=== PATIENT | female | born 1980 | race Caucasian/White ===

== ENCOUNTER 2016-12-31 19:12 | Emergency (ER) | payer BC ==
[2016-12-31 20:10] LABS: Clarity Clear (Clear); Leukocyte Negative (Negative); Nitrite Negative (Negative)
[2016-12-31 20:11] LABS: Bacteria/HPF Rare-Few HPF (None Seen); Bilirubin Negative (Negative); Blood, Urine Negative (Negative); Glucose, Urine (Dipstick) Negative (Negative); Protein, Urine (Dipstick) Negative (Neg-Trace); RBC/HPF 0-3 HPF (0-3); Urobilinogen 0.2 mg/dL (0.2-1.0); WBC/HPF 0-3 HPF (0-3)
[2016-12-31] MEDS ORDERED: Ketorolac Tromethamine 30 MG/ML VIAL ONE (20:21)
[2016-12-31] MEDS ORDERED: Metoclopramide HCl 10 MG/2 ML VIAL ONE (20:21)
[2016-12-31] MEDS ORDERED: Ondansetron HCl/PF 4 MG/2 ML Vial ONE (20:21)
[2016-12-31 20:54] LABS: #Basophils 0.1 thou/uL (0.0-0.2); #Eosinphils 0.1 thou/uL (0.0-0.7); #Lymphocytes 1.6 thou/uL (1.20-3.40); #Monocytes 0.4 thou/uL (0.11-0.59); #Neutrophils 7.2 thou/uL (1.40-6.50); %Basophils 0.6 % (0.0-1.0); %Lymphocytes 16.7 % (21.0-51.0); %Monocytes 4.4 % (0.0-10.0); %Neutrophils 77.3 % (42.0-75.0); Hemoglobin 13.6 g/dL (12.0-16.0); Mean Corpuscular HGB CONC 33.9 g/dL (32.0-36.0); Mean Corpuscular Hemoglobin 28.6 pg (27.0-31.0); Mean Corpuscular Volume 84.5 fl (81.0-99.0); Mean Platelet Volume 6.5 fL (7.4-10.4); Platelet Count 240 thou/uL (130-400); RBC Distribution Width 12.1 % (11.5-14.5); Red Blood Cell (RBC) Count 4.76 mill/uL (4.20-5.40); White Blood Cell (WBC) Count 9.4 thou/uL (4.8-10.8)
--- NOTE | 2016-12-31 20:59 | RAD ---
PORTABLE CHEST: 12/31/16 HISTORY: Left sided pain. Heart size and mediastinum are within normal limits. The lungs are clear of infiltrates. No signific ant bony findings. IMPRESSION: No active intrathoracic disease. POS: [facility]
--- NOTE | 2016-12-31 21:07 | CT ---
CT OF ABDOMEN AND PELVIS PERFORMED WITHOUT CONTRAST ENHANCEMENT: 12/31/16 HISTORY: Right flank pain and left upper quadrant pain. The lung bases are clear. The liver, spleen, and pancreas regions appear unremarkable. The gallbladder has been removed. Right and left adrenal glands and right and left kidneys are normal in size. Slight increased attenu ation to the medullary pyramids are present. There are punctate renal calculi seen. There is no evid ence or obstruction. No ureteral calculus noted. There is no significant periaortic or mesenteric ly mphadenopathy. A gastric band is in place. CT OF PELVIS PERFORMED WITHOUT CONTRAST ENHANCEMENT: There is no evidence of adenopathy, mass or free fluid. The uterus has been removed. IMPRESSION: 1. Punctate nonobstructing renal calculi with some haziness in the region of the medullary pyra mids. 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 2. Borderline liver size. The right lobe is somewhat elongated. 3. Postop cholecystectomy change. 4. Normal appendix. POS: [facility]
[2016-12-31 21:13] LABS: Hemoglobin A1c 5.3 % (4.0-6.0)
[2016-12-31 21:14] LABS: ALT (SGPT) 13 U/L (8-55); AST (SGOT) 12 U/L (5-34); Albumin 4.3 g/dL (3.5-5.0); Alkaline Phosphatase 51 U/L (40-150); Anion Gap 17 mmol/L (10-20); BUN (Urea Nitrogen) 9 mg/dL (7.0-18.7); Bilirubin, Total 0.5 mg/dL (0.2-1.2); CK (CPK) 109 U/L (29-168); CKMB 1.1 ng/mL (0-6.6); Calc. Creatinine Clearance 0 mL/min (70-130); Calcium 9.3 mg/dL (7.8-10.44); Carbon Dioxide 23 mmol/L (22-29); Chloride 103 mmol/L (98-107); Estimated GFR-MDRD 79; Globulin 3.2 g/dL (2.4-3.5); Glucose 90 mg/dL (70-105); Lipase 21 U/L (8-78); Protein, Total 7.5 g/dL (6.0-8.3); Sodium 139 mmol/L (136-145); Troponin I Less than 0.010 ng/mL (< 0.028)
[2016-12-31] MEDS ORDERED: Ciprofloxacin 500 MG TAB ONE (21:51)
[2016-12-31] MEDS ORDERED: metroNIDAZOLE 250 MG TAB ONE (21:51)
== END 2016-12-31 22:21 | disposition home or self-care (01) ==
LOC: MADERS 19:12
DX: K52.9 Noninfective gastroenteritis and colitis, unspecified (principal); F41.9 Anxiety disorder, unspecified; F32.9 Major depressive disorder, single episode, unspecified
CPT/HCPCS: 36415; 71010; 74176; 80053; 81001; 82150; 82553; 83036; 83605; 83690; 84484; 85025; 86140; 87040; 87086; 96374; 96375; J1885; J2405; J2765

== ENCOUNTER 2017-01-29 16:39 | Emergency (ER) | payer BC, SELFPAY ==
[2017-01-29] MEDS ORDERED: HYDROcodone/Acetaminophen 10/325 mg Tablet ONE (18:04)
[2017-01-29] MEDS ORDERED: Naproxen 500 MG TAB ONE (18:05)
--- NOTE | 2017-01-29 18:22 | RAD ---
LEFT WRIST RADIOGRAPHS THREE VIEWS 01/29/17 PROVIDED CLINICAL HISTORY: Left hand pain status post injury. FINDINGS: There is a comminuted possibly intra-articular fracture involving the base of the fifth metacarpal. There is overlying soft tissue swelling. No soft tissue gas is definitely apparent. No additional fr actures evident. Alignment appears otherwise anatomic. Joint spaces appear preserved. There are two minute foci of increased radiodensity which overlie the dorsal aspect of the proximal metacarpals on the lateral view which may reflect soft tissue foreign body or bone fragments. IMPRESSION: Comminuted, possibly intra-articular base of fifth metacarpal fracture. Radiodense foci of dorsum of the hand on the lateral view as above. POS: [facility]
--- NOTE | 2017-01-29 18:32 | RAD ---
LEFT HAND RADIOGRAPHS THREE VIEWS 01/29/17 PROVIDED CLINICAL HISTORY: Left hand pain status post injury. FINDINGS: There is a comminuted probably intra-articular fracture involving the base of the fifth metacarpal w ithout significant displacement. There is adjacent soft tissue swelling. Tiny radiodense foci projec zuleima in the dorsal aspect of the metacarpals on the lateral view which could reflect foreign bodies o r bone fragments. No additional fracture is evident. IMPRESSION: Comminuted and probably intra-articular base of the fifth metacarpal fracture. POS: [facility]
== END 2017-01-29 19:25 | disposition home or self-care (01) ==
LOC: MADERS 16:39
DX: S62.307A Unspecified fracture of fifth metacarpal bone, left hand, initial encounter for closed fracture (principal); S61.412A Laceration without foreign body of left hand, initial encounter; F41.9 Anxiety disorder, unspecified; F32.9 Major depressive disorder, single episode, unspecified; W54.0XXA Bitten by dog, initial encounter

== ENCOUNTER 2018-12-06 21:59 | Emergency (ER) | payer BC, SELFPAY ==
[2018-12-06 23:12] LABS: ALT (SGPT) 9 U/L (8-55); AST (SGOT) 10 U/L (5-34); Albumin 4.6 g/dL (3.5-5.0); Alkaline Phosphatase 45 U/L (40-150); Anion Gap 16 mmol/L (10-20); BUN (Urea Nitrogen) 18 mg/dL (7.0-18.7); Bilirubin, Total 0.4 mg/dL (0.2-1.2); Calc. Creatinine Clearance 0 mL/min (70-130); Carbon Dioxide 23 mmol/L (22-29); Chloride 102 mmol/L (98-107); Estimated GFR-MDRD 72; Globulin 2.8 g/dL (2.4-3.5); Glucose 93 mg/dL (70-105); Potassium 4.2 mmol/L (3.5-5.1); Protein, Total 7.4 g/dL (6.0-8.3); Sodium 137 mmol/L (136-145)
[2018-12-06] MEDS ORDERED: Diazepam 5 MG TAB ONE (23:41)
== END 2018-12-06 23:43 | disposition home or self-care (01) ==
LOC: MADERS 21:59
DX: R25.2 Cramp and spasm (principal); F41.9 Anxiety disorder, unspecified; F32.9 Major depressive disorder, single episode, unspecified; Z79.1 Long term (current) use of non-steroidal anti-inflammatories (NSAID); Z79.899 Other long term (current) drug therapy
CPT/HCPCS: 36415; 80053; 99283

== ENCOUNTER 2018-12-30 21:21 | Emergency (ER) | payer BC ==
[~2018-12-30 21:21] MED LIST: Iopamidol 370 76% 100 ML VIAL ONE
[2018-12-30] MEDS ORDERED: Fentanyl 100 MCG/2 ML VIAL ONE (22:09)
[2018-12-30 22:49] LABS: #Basophils 0.1 thou/uL (0.0-0.2); #Eosinphils 0.1 thou/uL (0.0-0.7); #Lymphocytes 2.7 thou/uL (1.20-3.40); #Monocytes 0.4 thou/uL (0.11-0.59); %Basophils 0.6 % (0.0-1.0); %Eosinophils 1.7 % (0.0-10.0); %Lymphocytes 32.4 % (21.0-51.0); %Monocytes 4.7 % (0.0-10.0); %Neutrophils 60.6 % (42.0-75.0); Mean Corpuscular Hemoglobin 28.3 pg (27.0-31.0); Mean Corpuscular Volume 83.2 fL (78.0-98.0); Mean Platelet Volume 5.8 fL (7.4-10.4); Platelet Count 317 thou/uL (130-400); RBC Distribution Width 12.6 % (11.5-14.5); Red Blood Cell (RBC) Count 4.24 mill/uL (4.20-5.40); White Blood Cell (WBC) Count 8.3 thou/uL (4.8-10.8)
[2018-12-30 23:03] LABS: Anion Gap 15 mmol/L (10-20); BUN (Urea Nitrogen) 17 mg/dL (7.0-18.7); Calc. Creatinine Clearance 0 mL/min (70-130); Calcium 9.7 mg/dL (7.8-10.44); Carbon Dioxide 23 mmol/L (22-29); Chloride 104 mmol/L (98-107); Estimated GFR-MDRD 84; Glucose 92 mg/dL (70-105); Potassium 3.9 mmol/L (3.5-5.1); Sodium 138 mmol/L (136-145)
--- NOTE | 2018-12-30 23:54 | CT ---
CT ABDOMEN WITH CONTRAST CT PELVIS WITH CONTRAST CT LUMBAR SPINE: DATE: 12/30/2018 Time: 11:13 PM HISTORY: 38-year-old female with recent lumbar surgery (anterior approach) presents with worsening low back pa in, saddle paresthesia, and urinary retention. COMPARISON: Abdomen pelvis CT 12/31/2016 TECHNIQUE: IV injection of iodinated contrast media:Administered Oral contrast media:Not administered FINDINGS: The gastric fluoroscopic LAP-BAND has been removed, and has been replaced what what may represent idgna tical sleeve gastrectomy. Cholecystectomy clips in gallbladder fossa. Liver, abdominal aorta, kidneys, pancreas, spleen, appendix, urinary bladder, and adrenals, are normal. No small bowel dilati on. No colonic diverticulitis. No ascites or pneumoperitoneum. In addition to the previously demonstrated finding of postsurgical scar tissue in the lower abdominal subcutaneous fat pannus, there is a new finding of a 6 x 3.5 x 4.5 cm collection of material in the subcutaneous fat of the left lower quadrant abdominal pannus broadly abutting the left lower abdo linh wall, consistent with postsurgical hematoma. Uterus is absent. There are 5 lumbar-type vertebrae. Vertebral body heights are maintained. Alignment is normal. There is no hematoma in the retroperitoneum or prevertebral space. In addition to interbody cage within the L5-S1 disc space, there are anterior screws in the inferior endplate of L5 and superior endplate of S1, entering through the anterior aspect of the L5-S1 disc space. There is no evidence of high-grade central spinal canal stenosis. There is moderate bilateral neural foraminal stenosis at L5 -S1. IMPRESSION: 1) recent anterior lumbosacral fusion surgery with hardware. No gross evidence of complications. 2) postsurgical hematoma in left lower quadrant superficial fat abutting the outer surface of left lo wer abdominal wall . 3) status post vertical sleeve gastrectomy, cholecystectomy, and hysterectomy.
[2018-12-31] MEDS ORDERED: Ketorolac Tromethamine 30 MG/ML VIAL ONE (00:16)
[2018-12-31] MEDS ORDERED: Fentanyl 100 MCG/2 ML VIAL ONE (00:16)
[2018-12-31] MEDS ORDERED: Diazepam 5 MG TAB ONE (01:25)
== END 2018-12-31 01:54 | disposition short-term general hospital (02) ==
LOC: MADERS 21:21
DX: M54.5 Low back pain (principal); F41.9 Anxiety disorder, unspecified; F32.9 Major depressive disorder, single episode, unspecified; Z79.899 Other long term (current) drug therapy
CPT/HCPCS: 36415; 74177; 80048; 85025; 96372; 96374; J1885; J3010; Q9967

== ENCOUNTER 2019-05-18 17:57 | Emergency (ER) | payer BC ==
[2019-05-18 18:37] LABS: #Eosinphils 0.1 thou/uL (0.0-0.7); #Lymphocytes 1.7 thou/uL (1.20-3.40); #Monocytes 0.3 thou/uL (0.11-0.59); #Neutrophils 3.1 thou/uL (1.40-6.50); %Basophils 0.9 % (0.0-1.0); %Lymphocytes 32.8 % (21.0-51.0); %Monocytes 6.5 % (0.0-10.0); %Neutrophils 57.9 % (42.0-75.0); Hemoglobin 11.5 g/dL (12.0-16.0); Mean Corpuscular HGB CONC 34.4 g/dL (32.0-36.0); Mean Corpuscular Volume 81.5 fL (78.0-98.0); Mean Platelet Volume 6.7 fL (7.4-10.4); Platelet Count 194 thou/uL (130-400); RBC Distribution Width 13.4 % (11.5-14.5); Red Blood Cell (RBC) Count 4.11 mill/uL (4.20-5.40); White Blood Cell (WBC) Count 5.3 thou/uL (4.8-10.8)
[2019-05-18 18:51] LABS: Bilirubin Negative (Negative); Blood, Urine Large (Negative); Glucose, Urine (Dipstick) Negative (Negative); Leukocyte Negative (Negative); Nitrite Negative (Negative); Protein, Urine (Dipstick) Negative (Neg-Trace); Urobilinogen 0.2 mg/dL (Less than 2)
[2019-05-18 18:51] LABS: ALT (SGPT) 21 U/L (8-55); AST (SGOT) 23 U/L (5-34); Albumin 4.2 g/dL (3.5-5.0); Alkaline Phosphatase 54 U/L (40-110); Anion Gap 12 mmol/L (10-20); BUN (Urea Nitrogen) 10 mg/dL (7.0-18.7); Bilirubin, Total 0.4 mg/dL (0.2-1.2); Calc. Creatinine Clearance 0 mL/min (70-130); Calcium 9.1 mg/dL (7.8-10.44); Carbon Dioxide 24 mmol/L (22-29); Chloride 109 mmol/L (98-107); Estimated GFR-MDRD 89; Globulin 2.2 g/dL (2.4-3.5); Glucose 92 mg/dL (70-105); Protein, Total 6.4 g/dL (6.0-8.3); Sodium 141 mmol/L (136-145)
[2019-05-18 18:52] LABS: Clarity Hazy (Clear)
[2019-05-18 18:59] LABS: Bacteria/HPF Rare-Few HPF (None Seen); RBC/HPF Greater than 50 HPF (0-3); Squamous Epithelial 0-3 HPF (0-3); WBC/HPF 0-3 HPF (0-3)
[2019-05-18 19:00] LABS: Calcium Oxalate Crystals 1+ HPF (None Seen)
[2019-05-18 19:01] LABS: Mucous/LPF 1+ LPF (<2+)
== END 2019-05-18 19:20 | disposition home or self-care (01) ==
LOC: MADERS 17:57
DX: N20.1 Calculus of ureter (principal); K21.9 Gastro-esophageal reflux disease without esophagitis; F41.9 Anxiety disorder, unspecified; Z79.899 Other long term (current) drug therapy
CPT/HCPCS: 36415; 51701; 80053; 81003; 81015; 85025; 87086

== ENCOUNTER 2019-09-09 19:53 | Emergency (ER) | payer BC ==
[2019-09-09] MEDS ORDERED: Mag-Al Plus 1200 MG/1200 MG/120 MG/30 ML UDCUP ONE (20:54)
[2019-09-09] MEDS ORDERED: Lidocaine Viscous Sol 2% 15 ml UD Cup ONE (20:54)
[2019-09-09 21:03] LABS: #Eosinphils 0.1 thou/uL (0.0-0.7); #Lymphocytes 2.2 thou/uL (1.20-3.40); #Monocytes 0.4 thou/uL (0.11-0.59); #Neutrophils 4.3 thou/uL (1.40-6.50); %Basophils 0.6 % (0.0-1.0); %Eosinophils 1.2 % (0.0-10.0); %Lymphocytes 31.1 % (21.0-51.0); %Monocytes 5.1 % (0.0-10.0); Hemoglobin 12.4 g/dL (12.0-16.0); Mean Corpuscular HGB CONC 30.6 g/dL (32.0-36.0); Mean Corpuscular Hemoglobin 26.8 pg (27.0-31.0); Mean Corpuscular Volume 87.3 fL (78.0-98.0); Mean Platelet Volume 7.3 fL (7.4-10.4); Platelet Count 268 thou/uL (130-400); RBC Distribution Width 12.8 % (11.5-14.5); Red Blood Cell (RBC) Count 4.62 mill/uL (4.20-5.40)
[2019-09-09 21:23] LABS: ALT (SGPT) 21 U/L (8-55); AST (SGOT) 20 U/L (5-34); Albumin 4.1 g/dL (3.5-5.0); Alkaline Phosphatase 65 U/L (40-110); Anion Gap 17 mmol/L (10-20); BUN (Urea Nitrogen) 13 mg/dL (7.0-18.7); Bilirubin, Total 0.4 mg/dL (0.2-1.2); Calc. Creatinine Clearance 0 mL/min (70-130); Calcium 8.9 mg/dL (7.8-10.44); Carbon Dioxide 16 mmol/L (22-29); Chloride 111 mmol/L (98-107); Estimated GFR-MDRD Greater than 90; Globulin 2.7 g/dL (2.4-3.5); Glucose 76 mg/dL (70-105); Lipase 16 U/L (8-78); Protein, Total 6.8 g/dL (6.0-8.3); Sodium 140 mmol/L (136-145)
== END 2019-09-09 22:05 | disposition home or self-care (01) ==
LOC: MADERS 19:53
DX: R10.13 Epigastric pain (principal); K21.9 Gastro-esophageal reflux disease without esophagitis; F41.9 Anxiety disorder, unspecified
CPT/HCPCS: 36415; 80053; 83690; 83735; 85025; 99284

== ENCOUNTER 2019-12-19 12:56 | Emergency (ER) | payer OTHER, SELFPAY ==
[2019-12-19] MEDS ORDERED: Lidocaine 1% 20 ML MDV ONE (13:33)
== END 2019-12-19 14:00 | disposition home or self-care (01) ==
LOC: MADERS 12:56
DX: S61.052A Open bite of left thumb without damage to nail, initial encounter (principal); K21.9 Gastro-esophageal reflux disease without esophagitis; F41.9 Anxiety disorder, unspecified; Z87.442 Personal history of urinary calculi; W54.0XXA Bitten by dog, initial encounter
CPT/HCPCS: 96372; 99283; J2001

== ENCOUNTER 2020-01-09 14:17 | Outpatient (CLI) | payer OTHER ==
[2020-01-09 23:09] LABS: HIV (1/2) Antibody/Antigen Non-Reactive (NonReactive); HIV 1/2 INDEX 0.08 S/CO (<1.00)
[2020-01-11 10:17] LABS: HCG, Total Quant Less than 1.20 mIU/mL (See Ranges)
== END 2020-01-09 14:18 | disposition home or self-care (01) ==
LOC: MADLAB 14:17
DX: Z01.818 Encounter for other preprocedural examination (principal)
CPT/HCPCS: 36415; 84702; 84703; 87389

== ENCOUNTER 2020-09-27 07:57 | Inpatient (IN) | payer SELFPAY ==
[2020-09-27 08:35] LABS: Bilirubin Negative (Negative); Blood, Urine Trace (Negative); Clarity Slightly Cloudy (Clear); Glucose, Urine (Dipstick) Negative (Negative); Ketone, Urine Negative (Negative); Leukocyte Moderate (Negative); Nitrite Negative (Negative); Protein, Urine (Dipstick) Negative (Neg-Trace); Specific Gravity, Urine 1.015 (1.005-1.030); Urobilinogen 0.2 mg/dL (Less than 2); pH, Urine 5.5 (5.0-9.0)
[2020-09-27 08:40] LABS: RBC/HPF 0-3 HPF (0-3); WBC/HPF Greater Than 50 HPF (0-3)
[2020-09-27 08:41] LABS: Bacteria/HPF 2+ HPF (None Seen)
[2020-09-27 09:21] LABS: #Eosinphils 0.1 thou/uL (0.0-0.7); #Lymphocytes 1.2 thou/uL (1.20-3.40); #Monocytes 0.4 thou/uL (0.11-0.59); #Neutrophils 3.2 thou/uL (1.40-6.50); %Basophils 0.9 % (0.0-1.0); %Eosinophils 2.6 % (0.0-10.0); %Lymphocytes 24.2 % (21.0-51.0); %Monocytes 7.7 % (0.0-10.0); %Neutrophils 64.7 % (42.0-75.0); Hemoglobin 9.5 g/dL (12.0-16.0); Mean Corpuscular HGB CONC 31.5 g/dL (32.0-36.0); Mean Corpuscular Hemoglobin 25.3 pg (27.0-31.0); Mean Corpuscular Volume 80.5 fL (78.0-98.0); Platelet Count 259 thou/uL (130-400); RBC Distribution Width 13.4 % (11.5-14.5); Red Blood Cell (RBC) Count 3.73 mill/uL (4.20-5.40); White Blood Cell (WBC) Count 4.9 thou/uL (4.8-10.8)
[2020-09-27] MEDS ORDERED: Piperacillin/Tazobactam 3.375 GM VIAL ONE (11:25)
[2020-09-27] MEDS ORDERED: Sodium Chloride 0.9% 1,000 ML ONE (11:25)
[2020-09-27] MEDS ORDERED: Morphine 4 MG/ML VIAL ONE (11:25)
[2020-09-27] MEDS ORDERED: Sulfameth/Trimethoprim DS 800-160mg TAB ONE (11:25)
[2020-09-27] MEDS ORDERED: Sodium Chloride 0.9% 100 ML ONE (11:26)
[2020-09-27 11:28] LABS: Pregnancy Test - Urine (BHCG) Negative (Negative); Pregu Control Background? CLEAR/WHITE (CLR/WHITE); Pregu Control Bar Appear? YES (CONTROL BAR); Specific Gravity 1.015 (1.002-1.036)
[2020-09-27 11:44] LABS: ALT (SGPT) 8 U/L (8-55); AST (SGOT) 11 U/L (5-34); Albumin 4.1 g/dL (3.5-5.0); Alkaline Phosphatase 68 U/L (40-110); Anion Gap 14 mmol/L (10-20); BUN (Urea Nitrogen) 8 mg/dL (7.0-18.7); Bilirubin, Total 0.3 mg/dL (0.2-1.2); Calc. Creatinine Clearance 0 mL/min (70-130); Carbon Dioxide 22 mmol/L (22-29); Chloride 108 mmol/L (98-107); Globulin 2.6 g/dL (2.4-3.5); Glucose 86 mg/dL (70-105); Lipase 24 U/L (8-78); Protein, Total 6.7 g/dL (6.0-8.3)
[2020-09-27 12:49] VITALS: BMI 31.8
[2020-09-27 13:27] LABS: Sodium 140 mmol/L (136-145)
[2020-09-27] MEDS ORDERED: Calcium Carbonate 500 MG ChewTAB PO PRN (13:44)
[2020-09-27] MEDS ORDERED: Senokot S 8.6-50 MG TAB PO PRN (13:46)
[2020-09-27] MEDS: Morphine 4 MG/ML VIAL SLOW IVP PRN (15:40)
[2020-09-27] MEDS: Acetaminophen 325 MG TAB PO PRN (18:28)
[2020-09-27] MEDS: HYDROcodone/Acetaminophen 5/325 mg Tablet PO PRN (19:38)
[2020-09-27] MEDS: Tamsulosin HCl 0.4 MG CAP PO SCH (20:28)
[2020-09-28] MEDS: Acetaminophen 325 MG TAB PO PRN ×3 (00:37→14:23)
[2020-09-28] MEDS: Morphine 4 MG/ML VIAL SLOW IVP PRN ×2 (00:38→18:00)
[2020-09-28] MEDS ORDERED: Sulfameth/Trimethoprim DS 800-160mg TAB PO SCH (01:30)
[2020-09-28] MEDS: Piperacillin/Tazobactam 3.375 GM in Sodium Chloride 0.9% 100 ML IVPB SCH ×4 (01:36→20:37)
[2020-09-28] MEDS: HYDROcodone/Acetaminophen 5/325 mg Tablet PO PRN ×4 (03:00→20:50)
[2020-09-28] MEDS: Ondansetron PF 4 MG/2 ML Vial IVP PRN ×3 (03:01→17:58)
[2020-09-28 06:26] LABS: #Eosinphils 0.1 thou/uL (0.0-0.7); #Lymphocytes 0.9 thou/uL (1.20-3.40); #Monocytes 0.5 thou/uL (0.11-0.59); #Neutrophils 3.9 thou/uL (1.40-6.50); %Basophils 0.9 % (0.0-1.0); %Monocytes 8.9 % (0.0-10.0); %Neutrophils 73.2 % (42.0-75.0); Hemoglobin 9.1 g/dL (12.0-16.0); Mean Corpuscular HGB CONC 31.5 g/dL (32.0-36.0); Mean Corpuscular Hemoglobin 25.6 pg (27.0-31.0); Mean Corpuscular Volume 81.2 fL (78.0-98.0); Mean Platelet Volume 5.9 fL (7.4-10.4); Platelet Count 204 thou/uL (130-400); RBC Distribution Width 13.6 % (11.5-14.5); Red Blood Cell (RBC) Count 3.57 mill/uL (4.20-5.40); White Blood Cell (WBC) Count 5.4 thou/uL (4.8-10.8)
[2020-09-28 07:03] LABS: Anion Gap 10 mmol/L (10-20); BUN (Urea Nitrogen) 8 mg/dL (7.0-18.7); Calc. Creatinine Clearance 144 mL/min (70-130); Carbon Dioxide 23 mmol/L (22-29); Chloride 109 mmol/L (98-107); Glucose 96 mg/dL (70-105); Potassium 3.8 mmol/L (3.5-5.1); Sodium 138 mmol/L (136-145)
[2020-09-28] MEDS: Ferrous Gluconate 324 MG TAB PO SCH (08:43)
[2020-09-28] MEDS: Sulfameth/Trimethoprim DS 800-160mg TAB PO SCH ×2 (08:43→20:36)
[2020-09-28] MEDS: Furosemide 20 MG TAB PO SCH (08:43)
[2020-09-28] MEDS: Enoxaparin Sodium 40 MG/0.4 ML SYRINGE SC SCH (08:46)
[2020-09-28 13:47] LABS: SARS-CoV-2 NAA Rapid Test Not Detected (NotDetected)
[2020-09-28] MEDS: Tamsulosin HCl 0.4 MG CAP PO SCH (20:36)
[2020-09-29] MEDS: Acetaminophen 325 MG TAB PO PRN ×2 (00:58→08:37)
[2020-09-29] MEDS: Piperacillin/Tazobactam 3.375 GM in Sodium Chloride 0.9% 100 ML IVPB SCH ×4 (01:50→20:10)
[2020-09-29] MEDS: HYDROcodone/Acetaminophen 5/325 mg Tablet PO PRN (02:44)
[2020-09-29] MEDS: Ferrous Gluconate 324 MG TAB PO SCH (08:36)
[2020-09-29] MEDS: Enoxaparin Sodium 40 MG/0.4 ML SYRINGE SC SCH (08:36)
[2020-09-29] MEDS: Furosemide 20 MG TAB PO SCH (08:37)
[2020-09-29] MEDS: Sulfameth/Trimethoprim DS 800-160mg TAB PO SCH ×3 (08:38→20:11)
[2020-09-29] MEDS: Fluticasone Propionate Nasal Spray 16 gm Bottle NASAL SCH (08:41)
[2020-09-29] MEDS ORDERED: Fioricet 325/50/40 mg Tablet PO PRN (11:25)
[2020-09-29] MEDS ORDERED: Guaifenesin DM 100-10/5 ML UDCUP PO PRN (11:46)
[2020-09-29] MEDS: Sodium Chloride 0.9% 1,000 ML IV SCH ×2 (14:55→21:12)
[2020-09-29] MEDS: Tamsulosin HCl 0.4 MG CAP PO SCH (20:11)
[2020-09-30] MEDS: HYDROcodone/Acetaminophen 5/325 mg Tablet PO PRN (01:02)
[2020-09-30] MEDS: Piperacillin/Tazobactam 3.375 GM in Sodium Chloride 0.9% 100 ML IVPB SCH ×4 (01:03→19:47)
[2020-09-30] MEDS: Sodium Chloride 0.9% 1,000 ML IV SCH ×3 (05:14→22:46)
[2020-09-30 05:52] LABS: #Basophils 0.1 thou/uL (0.0-0.2); #Eosinphils 0.1 thou/uL (0.0-0.7); #Lymphocytes 1.2 thou/uL (1.20-3.40); #Monocytes 0.4 thou/uL (0.11-0.59); #Neutrophils 2.1 thou/uL (1.40-6.50); %Basophils 1.3 % (0.0-1.0); %Eosinophils 3.8 % (0.0-10.0); %Lymphocytes 29.7 % (21.0-51.0); %Monocytes 10.3 % (0.0-10.0); %Neutrophils 54.9 % (42.0-75.0); Hemoglobin 9.6 g/dL (12.0-16.0); Mean Corpuscular HGB CONC 31.5 g/dL (32.0-36.0); Mean Corpuscular Hemoglobin 25.3 pg (27.0-31.0); Mean Corpuscular Volume 80.2 fL (78.0-98.0); Mean Platelet Volume 6.2 fL (7.4-10.4); Platelet Count 192 thou/uL (130-400); RBC Distribution Width 13.4 % (11.5-14.5); Red Blood Cell (RBC) Count 3.82 mill/uL (4.20-5.40); White Blood Cell (WBC) Count 3.9 thou/uL (4.8-10.8)
[2020-09-30 06:02] LABS: ALT (SGPT) 8 U/L (8-55); AST (SGOT) 12 U/L (5-34); Albumin 3.6 g/dL (3.5-5.0); Alkaline Phosphatase 69 U/L (40-110); Anion Gap 14 mmol/L (10-20); BUN (Urea Nitrogen) 7 mg/dL (7.0-18.7); Bilirubin, Total 0.3 mg/dL (0.2-1.2); Calc. Creatinine Clearance 139 mL/min (70-130); Calcium 8.6 mg/dL (7.8-10.44); Carbon Dioxide 24 mmol/L (22-29); Chloride 106 mmol/L (98-107); Globulin 2.7 g/dL (2.4-3.5); Glucose 70 mg/dL (70-105); Potassium 3.9 mmol/L (3.5-5.1); Protein, Total 6.3 g/dL (6.0-8.3); Sodium 140 mmol/L (136-145)
[2020-09-30] MEDS: Ondansetron PF 4 MG/2 ML Vial IVP PRN (08:56)
[2020-09-30] MEDS: Ferrous Gluconate 324 MG TAB PO SCH (08:58)
[2020-09-30] MEDS: Sulfameth/Trimethoprim DS 800-160mg TAB PO SCH (08:58)
[2020-09-30] MEDS: Furosemide 20 MG TAB PO SCH (08:58)
[2020-09-30] MEDS: Enoxaparin Sodium 40 MG/0.4 ML SYRINGE SC SCH (08:59)
[2020-09-30] MEDS: Fluticasone Propionate Nasal Spray 16 gm Bottle NASAL SCH (08:59)
[2020-09-30] MEDS: Tamsulosin HCl 0.4 MG CAP PO SCH (19:55)
[2020-10-01] MEDS: Piperacillin/Tazobactam 3.375 GM in Sodium Chloride 0.9% 100 ML IVPB SCH ×4 (01:45→20:23)
[2020-10-01] MEDS: Fluticasone Propionate Nasal Spray 16 gm Bottle NASAL SCH (07:58)
[2020-10-01] MEDS: Ferrous Gluconate 324 MG TAB PO SCH (08:06)
[2020-10-01] MEDS: Enoxaparin Sodium 40 MG/0.4 ML SYRINGE SC SCH (08:07)
[2020-10-01] MEDS ORDERED: Senokot S 8.6-50 MG TAB PO SCH (13:00)
[2020-10-01] MEDS: HYDROcodone/Acetaminophen 5/325 mg Tablet PO PRN (20:29)
[2020-10-01] MEDS: Tamsulosin HCl 0.4 MG CAP PO SCH (20:36)
[2020-10-01] MEDS ORDERED: Phenazopyridine HCl 97.5 MG TABLET PO SCH (23:15)
[2020-10-01] MEDS ORDERED: Morphine 4 MG/ML VIAL SLOW IVP SCH (23:15)
[2020-10-02] MEDS: Piperacillin/Tazobactam 3.375 GM in Sodium Chloride 0.9% 100 ML IVPB SCH ×4 (01:55→19:42)
[2020-10-02] MEDS ORDERED: Morphine 4 MG/ML VIAL SLOW IVP PRN (05:00)
[2020-10-02] MEDS: Ferrous Gluconate 324 MG TAB PO SCH (08:38)
[2020-10-02] MEDS: Phenazopyridine HCl 97.5 MG TABLET PO SCH ×3 (08:38→20:46)
[2020-10-02] MEDS: Enoxaparin Sodium 40 MG/0.4 ML SYRINGE SC SCH (08:39)
[2020-10-02] MEDS: Fluticasone Propionate Nasal Spray 16 gm Bottle NASAL SCH (08:39)
[2020-10-02] MEDS: Tamsulosin HCl 0.4 MG CAP PO SCH (20:46)
[2020-10-03] MEDS: Piperacillin/Tazobactam 3.375 GM in Sodium Chloride 0.9% 100 ML IVPB SCH ×2 (02:56→08:36)
[2020-10-03] MEDS: Enoxaparin Sodium 40 MG/0.4 ML SYRINGE SC SCH (08:32)
[2020-10-03] MEDS: Phenazopyridine HCl 97.5 MG TABLET PO SCH (08:33)
[2020-10-03] MEDS: Ferrous Gluconate 324 MG TAB PO SCH (08:33)
[2020-10-03] MEDS: Fluticasone Propionate Nasal Spray 16 gm Bottle NASAL SCH (08:38)
[2020-10-03 12:56] VITALS: BP 118/62; TEMP 98.2
== END 2020-10-03 14:40 | disposition home or self-care (01) | DRG 690 ==
LOC: MADERS 07:57 → MADMS 11:47
PROVIDERS: ADMIT Family Medicine; ATTEND Family Medicine
DX: N13.6 Pyonephrosis (principal); G89.29 Other chronic pain; K21.9 Gastro-esophageal reflux disease without esophagitis; M54.9 Dorsalgia, unspecified; K59.00 Constipation, unspecified; D64.9 Anemia, unspecified; Z98.890 Other specified postprocedural states; Z90.49 Acquired absence of other specified parts of digestive tract; Z87.442 Personal history of urinary calculi; Z88.8 Allergy status to other drugs, medicaments and biological substances; Z88.1 Allergy status to other antibiotic agents; Z90.89 Acquired absence of other organs; Z88.6 Allergy status to analgesic agent; R09.81 Nasal congestion; Z20.822 Contact with and (suspected) exposure to COVID-19
CPT/HCPCS: 0240U; 71046; 74176; 80048; 80053; 81003; 81015; 81025; 83605; 83690; 85025; 87077; 87086; 87186; 96365; 96375; J1650; J2270; J2405; J2543; J3490; J7050

== ENCOUNTER 2021-03-13 19:10 | Emergency (ER) | payer OTHER, SELFPAY ==
[2021-03-13 20:30] LABS: Bilirubin Negative (Negative); Blood, Urine Trace (Negative); Clarity Clear (Clear); Glucose, Urine (Dipstick) Negative (Negative); Ketone, Urine Negative (Negative); Leukocyte Small (Negative); Nitrite Negative (Negative); Protein, Urine (Dipstick) Negative (Neg-Trace)
[2021-03-13 20:36] LABS: Pregnancy Test - Urine (BHCG) Negative (Negative); Pregu Control Background? CLEAR/WHITE (CLR/WHITE); Pregu Control Bar Appear? YES (CONTROL BAR)
[2021-03-13 20:40] LABS: ALT (SGPT) 12 U/L (8-55); AST (SGOT) 16 U/L (5-34); Albumin 4.7 g/dL (3.5-5.0); Alkaline Phosphatase 92 U/L (40-110); Anion Gap 17 mmol/L (10-20); BUN (Urea Nitrogen) 11 mg/dL (7.0-18.7); Bilirubin, Total 0.6 mg/dL (0.2-1.2); Calc. Creatinine Clearance 0 mL/min (70-130); Calcium 9.8 mg/dL (7.8-10.44); Carbon Dioxide 24 mmol/L (22-29); Chloride 103 mmol/L (98-107); Globulin 3.5 g/dL (2.4-3.5); Glucose 90 mg/dL (70-105); Lipase 20 U/L (8-78); Potassium 3.9 mmol/L (3.5-5.1); Protein, Total 8.2 g/dL (6.0-8.3); Sodium 140 mmol/L (136-145)
[2021-03-13 20:44] LABS: Bacteria/HPF 2+ HPF (None Seen); RBC/HPF 0-3 HPF (0-3); Squamous Epithelial 0-3 HPF (0-3); Transitional Epithelial 0-3 HPF (None Seen)
[2021-03-13 20:48] LABS: #Eosinphils 0.1 thou/uL (0.0-0.7); #Lymphocytes 1.1 thou/uL (1.20-3.40); #Monocytes 0.3 thou/uL (0.11-0.59); %Basophils 0.7 % (0.0-1.0); %Eosinophils 1.2 % (0.0-10.0); %Lymphocytes 20.2 % (21.0-51.0); %Monocytes 5.8 % (0.0-10.0); %Neutrophils 72.2 % (42.0-75.0); Anisocytosis SLIGHT = 6-15 cells (100X) (0-5/hpf); Hemoglobin 11.4 g/dL (12.0-16.0); MDiff Complete? YES; Mean Corpuscular HGB CONC 29.7 g/dL (32.0-36.0); Mean Corpuscular Hemoglobin 23.5 pg (27.0-31.0); Mean Corpuscular Volume 79.1 fL (78.0-98.0); Mean Platelet Volume 6.8 fL (7.4-10.4); Microcytosis SLIGHT = 6-15 cells (100X) (0-5/hpf); Platelet Count 289 thou/uL (130-400); Red Blood Cell (RBC) Count 4.84 mill/uL (4.20-5.40); White Blood Cell (WBC) Count 5.5 thou/uL (4.8-10.8)
== END 2021-03-13 21:14 | disposition home or self-care (01) ==
LOC: MADERS 19:10
DX: N39.0 Urinary tract infection, site not specified (principal); R10.11 Right upper quadrant pain; K21.9 Gastro-esophageal reflux disease without esophagitis; Z87.442 Personal history of urinary calculi
CPT/HCPCS: 80053; 81003; 81015; 81025; 83690; 85025; 87077; 87086; 87186; 99284

== ENCOUNTER 2022-02-08 22:00 | Emergency (ER) | payer BC, OTHER ==
[2022-02-08 22:36] LABS: Bilirubin Negative (Negative); Blood, Urine Negative (Negative); Clarity Clear (Clear); Glucose, Urine (Dipstick) Negative (Negative); Ketone, Urine Negative (Negative); Leukocyte Negative (Negative); Nitrite Negative (Negative); Protein, Urine (Dipstick) Negative (Neg-Trace); Specific Gravity, Urine 1.015 (1.005-1.030)
[2022-02-08] MEDS ORDERED: Orphenadrine Citrate 60 MG/2 ML VIAL ONE (22:52)
== END 2022-02-08 23:10 | disposition home or self-care (01) ==
LOC: MADERS 22:00
DX: M54.9 Dorsalgia, unspecified (principal); K21.9 Gastro-esophageal reflux disease without esophagitis; E16.2 Hypoglycemia, unspecified; Z87.442 Personal history of urinary calculi
CPT/HCPCS: 81003; 96372; 99283; J2360

== ENCOUNTER 2022-02-11 21:02 | Emergency (ER) | payer BC | END 2022-02-11 22:31 | disposition left against medical advice (07) | LOC: MADERS 21:02 | DX: Z53.21 Procedure and treatment not carried out due to patient leaving prior to being seen by health care provider (principal) ==

== ENCOUNTER 2022-10-22 17:37 | Emergency (ER) | payer BC, SELFPAY ==
[2022-10-22 20:01] LABS: #Eosinphils 0.1 thou/uL (0.0-0.7); #Lymphocytes 0.9 thou/uL (1.20-3.40); #Monocytes 0.2 thou/uL (0.11-0.59); #Neutrophils 2.7 thou/uL (1.40-6.50); %Basophils 1.1 % (0.0-1.0); %Eosinophils 1.5 % (0.0-10.0); %Lymphocytes 22.5 % (21.0-51.0); %Monocytes 4.4 % (0.0-10.0); %Neutrophils 70.4 % (42.0-75.0); Anisocytosis SLIGHT = 6-15 cells (100X) (0-5/hpf); Hemoglobin 8.5 g/dL (12.0-16.0); Hypochromia SLIGHT = 6-15 cells (100X) (0-5/hpf); MDiff Complete? YES; Mean Corpuscular HGB CONC 30.5 g/dL (32.0-36.0); Mean Corpuscular Hemoglobin 22.1 pg (27.0-31.0); Mean Corpuscular Volume 72.6 fl (78.0-98.0); Mean Platelet Volume 7.3 fL (7.4-10.4); Microcytosis SLIGHT = 6-15 cells (100X) (0-5/hpf); Platelet Count 274 10x3/uL (130-400); Platelet Morphology Comment Appears Adequate; RBC Distribution Width 15.7 % (11.5-14.5); Red Blood Cell (RBC) Count 3.85 mill/uL (4.20-5.40); White Blood Cell (WBC) Count 3.9 10x3/uL (4.8-10.8)
[2022-10-22 20:15] LABS: ALT (SGPT) 10 U/L (8-55); AST (SGOT) 15 U/L (5-34); Alkaline Phosphatase 63 U/L (40-110); Anion Gap 13 mmol/L (10-20); BUN (Urea Nitrogen) 12 mg/dL (7.0-18.7); Bilirubin, Total 0.3 mg/dL (0.2-1.2); Calc. Creatinine Clearance 0 mL/min (70-130); Calcium 8.7 mg/dL (7.8-10.44); Carbon Dioxide 21 mmol/L (22-29); Chloride 110 mmol/L (98-107); Estimated GFR 106; Globulin 2.3 g/dL (2.4-3.5); Glucose 80 mg/dL (70-105); Potassium 4.1 mmol/L (3.5-5.1); Protein, Total 6.3 g/dL (6.0-8.3); Sodium 140 mmol/L (136-145)
[2022-10-22 20:25] LABS: Bilirubin Negative (Negative); Blood, Urine Negative (Negative); Clarity Clear (Clear); Glucose, Urine (Dipstick) Negative (Negative); Ketone, Urine Negative (Negative); Leukocyte Small (Negative); Nitrite Negative (Negative); Protein, Urine (Dipstick) Negative (Neg-Trace); Urobilinogen 0.2 mg/dL (Less than 2)
[2022-10-22 20:35] LABS: Bacteria/HPF Rare-Few HPF (None Seen); Mucous/LPF Rare LPF (<2+); RBC/HPF 0-3 HPF (0-3); Transitional Epithelial 0-3 HPF (None Seen); Trichomonas/HPF 1+ HPF (None Seen)
[2022-10-23 11:54] LABS: Iron 20 ug/dL (50-170); Iron Binding Capacity, Total 486 mcg/dL (265-497)
[2022-10-23 12:18] LABS: Ferritin 2.77 ng/mL (10-291)
== END 2022-10-22 22:45 | disposition home or self-care (01) ==
LOC: MADERS 17:37
DX: R00.2 Palpitations (principal); R00.1 Bradycardia, unspecified; D50.9 Iron deficiency anemia, unspecified
CPT/HCPCS: 71045; 71250; 80053; 81003; 81015; 82607; 82728; 83540; 83550; 83735; 84484; 85025; 85379; 93005

== ENCOUNTER 2023-04-12 12:45 | Emergency (ER) | payer SELFPAY ==
[2023-04-12 13:46] LABS: Bilirubin Negative (Negative); Blood, Urine Negative (Negative); Clarity Clear (Clear); Glucose, Urine (Dipstick) Negative (Negative); Ketone, Urine Negative (Negative); Leukocyte Trace (Negative); Nitrite Negative (Negative); Protein, Urine (Dipstick) Negative (Neg-Trace); Specific Gravity, Urine 1.025 (1.005-1.030); Urobilinogen 0.2 mg/dL (Less than 2)
[2023-04-12] MEDS ORDERED: HYDROcodone/Acetaminophen 10/325 mg Tablet ONE (13:48)
[2023-04-12] MEDS ORDERED: Ondansetron ODT 4 MG TAB ONE (13:48)
[2023-04-12 13:53] LABS: RBC/HPF 0-3 HPF (0-3)
[2023-04-12 13:54] LABS: Bacteria/HPF 1+ HPF (None Seen); CAUTI Indications for Culture Dysuria,urgency,freq
[2023-04-12 13:55] LABS: Pregnancy Test - Urine (BHCG) Negative (Negative); Pregu Control Background? CLEAR/WHITE (CLR/WHITE); Pregu Control Bar Appear? YES (CONTROL BAR); Specific Gravity 1.025 (1.002-1.036); Urine Culture Reflex No No
== END 2023-04-12 16:01 | disposition home or self-care (01) ==
LOC: MADERS 12:45
DX: N39.0 Urinary tract infection, site not specified (principal)
CPT/HCPCS: 74176; 81001; 81025; Q0162

== ENCOUNTER 2024-05-28 14:15 | Emergency (ER) | payer BC | END 2024-05-28 15:30 | disposition home or self-care (01) | LOC: MADERS 14:15 | DX: J11.1 Influenza due to unidentified influenza virus with other respiratory manifestations (principal) | CPT/HCPCS: 87081; 87400; 87430; 99283 ==